=== PATIENT | male | born 1955 | race Caucasian/White ===

== ENCOUNTER 2017-11-17 13:49 | Inpatient (IN) | payer MEDICARE, MEDICAID ==
[~2017-11-17] VITALS: Ht 188 cm; Wt 140.4 kg
[2017-11-17] MEDS ORDERED: normal saline 1000ML IV soln IV ONE (14:15)
[2017-11-17 14:43] LABS: CLARITY,URINE CLOUDY (Clear); COLOR,URINE YELLOW (Yellow); GLUCOSE, URINE NEGATIVE (Neg); KETONES,URINE NEGATIVE (Neg); LEUKOCYTE ESTERASE ,URINE LARGE (Neg); NITRITES, URINE NEGATIVE (Neg); OCCULT BLOOD,URINE LARGE (Neg); PH,URINE 6.5 (4.8-8.0); PROTEIN,URINE 30 mg/dl (Neg); UROBILINOGEN,URINE 0.2 E.U/dL (0.2-1.0)
[2017-11-17 14:49] LABS: UA COLLECTION TYPE FOLEY CATH
[2017-11-17 14:50] LABS: AMORPHOUS URATES 1+; BACTERIA,URINE 2+ /HPF (Neg); MUCUS STRANDS FEW /LPF (Neg); RBC,URINE TNTC /HPF (0-2); SQUAMOUS EPITHELIAL CELL,UR FEW /LPF (FEW); WBC,URINE TNTC /HPF (0-4)
[2017-11-17 14:52] LABS: BASOPHILS % (AUTO) 0.3 % (0-1); EOSINOPHILS # (AUTO) 0.1 X10'3 (0-0.9); HEMATOCRIT 35.9 % (42.0-52.0); HEMOGLOBIN 11.5 g/dl (14.0-17.9); LYMPHOCYTES # (AUTO) 0.4 X10'3 (1.1-4.8); LYMPHOCYTES % (AUTO) 6.9 % (21-51); MEAN CORPUSCULAR HEMOGLOBIN 26.6 PG (27.0-31.0); MEAN CORPUSCULAR HGB CONC 32.1 % (33.0-36.5); MEAN CORPUSCULAR VOLUME 82.9 FL (78-98); MEAN PLATELET VOLUME 6.3 FL (7.4-10.4); MONOCYTES # (AUTO) 0.4 X10'3 (0-0.9); MONOCYTES % (AUTO) 7.3 % (2-12); NEUTROPHILS # (AUTO) 4.4 X10'3 (1.8-7.7); NEUTROPHILS % (AUTO) 84.5 % (42-75); PLATELET COUNT 111 X10'3 (140-440); RED BLOOD COUNT 4.33 X10'6 (4.70-6.10); WHITE BLOOD COUNT 5.2 X10'3 (4.5-11.0)
[2017-11-17 15:03] LABS: PROTHROMBIN TIME 10.2 SECONDS (9.0-12.0)
[2017-11-17] MEDS ORDERED: levoFLOXACIN-Levaquin 750MG/D5 150 ML IV ONE (15:10)
[2017-11-17 15:16] LABS: ALANINE AMINOTRANSFERASE 30 U/L (12-78); ALBUMIN 3.1 G/DL (3.4-5.0); ALBUMIN/GLOBULIN RATIO 0.6 (1.1-1.5); ALKALINE PHOSPHATASE 101 IU/L (46-116); ANION GAP 5 (8-16); ASPARTATE AMINO TRANSFERASE 16 U/L (10-37); BILIRUBIN,TOTAL 0.5 MG/DL (0.1-1.0); BLOOD UREA NITROGEN 79 MG/DL (7-18); CALCIUM 8.8 MG/DL (8.5-10.1); CHLORIDE 104 MMOL/L (99-107); CREATININE 3.44 MG/DL (0.60-1.10); GLUCOSE 173 MG/DL (70-104); POTASSIUM 4.5 MMOL/L (3.5-5.1); SODIUM 144 MMOL/L (135-145); TOTAL CARBON DIOXIDE 35.3 MMOL/L (24-32); TROPONIN I < 0.04 NG/ML (0.0-0.05); eGFR 18 ML/MIN
[2017-11-17] MEDS ORDERED: levoFLOXACIN-Levaquin 500mg/D5 100 ML IV ONE (15:40)
[2017-11-17] MEDS ORDERED: IPRA3AMP IH (15:42)
[2017-11-17] MEDS ORDERED: PRE5T PO (15:42)
[2017-11-17] MEDS ORDERED: AMIN30LI28 PO (15:42)
[2017-11-17] MEDS ORDERED: MORP60CA18 PO (15:42)
[2017-11-17] MEDS ORDERED: MAGN400O6 PO (15:42)
[2017-11-17] MEDS ORDERED: VANC1VIA21 IV (15:42)
[2017-11-17] MEDS ORDERED: MELO-102 PO (15:42)
[2017-11-17] MEDS ORDERED: HYDR-565 PO (15:42)
[2017-11-17] MEDS ORDERED: [UNRECOGNIZED DRUG - CODE] TOP (15:42)
[2017-11-17] MEDS ORDERED: VITC500T PO (15:42)
[2017-11-17] MEDS ORDERED: BISA10SU60 RC (15:42)
[2017-11-17] MEDS ORDERED: DIGO250T PO (15:42)
[2017-11-17] MEDS ORDERED: MAG355OR18 PO (15:42)
[2017-11-17] MEDS ORDERED: ZIN220C PO (15:42)
[2017-11-17] MEDS ORDERED: ONDA4TAB9 SL (15:42)
[2017-11-17] MEDS ORDERED: FLO0.4C PO (15:42)
[2017-11-17] MEDS ORDERED: MULT1TAB74 PO (15:42)
[2017-11-17] MEDS ORDERED: CARV-50 PO (15:42)
[2017-11-17] MEDS ORDERED: ALBU18HF2 INH (15:42)
[2017-11-17] MEDS ORDERED: SERIN IH (15:42)
[2017-11-17] MEDS ORDERED: ASPI81TA52 PO (15:42)
[2017-11-17] MEDS ORDERED: TEMA7.5C2 PO (15:42)
[2017-11-17] MEDS ORDERED: AMIO200T57 PO (15:42)
[2017-11-17] MEDS ORDERED: HYDROcodone/acetaminophen 5mg/325mg tablet PO PRN (16:40)
[2017-11-17] MEDS ORDERED: acetaminophen 325mg tablet PO PRN ×2 (16:40→16:45)
[2017-11-17] MEDS ORDERED: mag hydrox/Alum hydrox/simeth 30ml oral suspension PO PRN (16:45)
[2017-11-17] MEDS ORDERED: metoclopramide 5 mg/ml inj IV PRN (16:45)
[2017-11-17] MEDS ORDERED: magnesium hydroxide 30ml (MOM) UD suspension PO PRN (16:45)
[2017-11-17] MEDS ORDERED: morphine 4 MG/ML inj SYRINge IV PRN (16:45)
[2017-11-17] MEDS ORDERED: ondansetron/PF 4mg/2ml inj IV PRN (16:45)
[2017-11-17] MEDS ORDERED: HYDROmorphone inj. 0.5 MG/0.5 ML DISP.SYRIN IV PRN ×2 (16:45)
[2017-11-17] MEDS ORDERED: acetaminophen 650mg rectal suppository RC PRN (16:50)
[2017-11-17] MEDS ORDERED: normal saline 1000ml 1,000 ML IV SCH (16:50)
[2017-11-17] MEDS ORDERED: diphenhydrAMINE 50 mg/ml inj IV PRN (16:50)
[2017-11-17] MEDS ORDERED: bisacodyl 10mg suppository rectal RC PRN (16:50)
[2017-11-17] MEDS ORDERED: diphenhydrAMINE 25mg capsule PO PRN (16:50)
[2017-11-17] MEDS: normal saline 1000ml 1,000 ML IV SCH (19:17)
[2017-11-17] MEDS: ipratropium/albuterol 3ml nebule IH SCH (19:17)
[2017-11-17] MEDS ORDERED: piperacillin/tazo 4.5gm/100ml 100 ML IV SCH (20:00)
[2017-11-17] MEDS: docusate sod 100mg capsule PO SCH (21:36)
[2017-11-17] MEDS: carvedilol 6.25mg tablet PO SCH (21:37)
[2017-11-17] MEDS: lactobacillus rhamnosus 10,000 MMU CELLS/CAPSULE PO SCH (21:37)
[2017-11-17] MEDS: HYDROcodone/acetaminophen 10/325mg tab PO PRN (22:51)
[2017-11-18 00:15] VITALS: BP 111/73
[2017-11-18] MEDS ORDERED: piperacillin-tazo 2.25gm/50ml 50 ML IV ONE (00:38)
[2017-11-18] MEDS: piperacillin/tazobactam inj. 2.25 GM in normal saline 50ml IV IV SCH ×3 (00:50→16:52)
[2017-11-18] MEDS: heparin, porcine 5000 units/ml vial SQ SCH ×2 (00:56→08:04)
[2017-11-18] MEDS: normal saline 1000ml 1,000 ML IV SCH ×3 (02:00→13:26)
[2017-11-18] MEDS: HYDROcodone/acetaminophen 10/325mg tab PO PRN (04:05)
[2017-11-18 05:29] LABS: HEMOGLOBIN A1C 6.1 % (4.5-6.2)
[2017-11-18 07:34] VITALS: BP 125/49
[2017-11-18] MEDS ORDERED: vancomycin 1,000mg inj IV SCH (08:00)
[2017-11-18] MEDS ORDERED: amiodarone 200mg tablet PO SCH (08:00)
[2017-11-18] MEDS: docusate sod 100mg capsule PO SCH ×2 (08:00→22:23)
[2017-11-18] MEDS ORDERED: digoxin 250mcg (0.25mg) tablet PO SCH (08:00)
[2017-11-18] MEDS: ipratropium/albuterol 3ml nebule IH SCH ×4 (08:00→19:17)
[2017-11-18] MEDS: carvedilol 6.25mg tablet PO SCH ×2 (08:01→22:23)
[2017-11-18] MEDS: lactobacillus rhamnosus 10,000 MMU CELLS/CAPSULE PO SCH ×2 (08:03→22:23)
[2017-11-18] MEDS: tamsulosin 0.4mg capsule PO SCH (08:03)
[2017-11-18] MEDS: aspirin 81mg tablet.DR PO SCH (08:03)
[2017-11-18 11:30] VITALS: BP 138/60
[2017-11-18 14:02] LABS: BASOPHILS % (AUTO) 0.5 % (0-1); EOSINOPHILS % (AUTO) 0.5 % (0-6); HEMOGLOBIN 10.9 g/dl (14.0-17.9); LYMPHOCYTES # (AUTO) 0.5 X10'3 (1.1-4.8); LYMPHOCYTES % (AUTO) 9.7 % (21-51); MEAN CORPUSCULAR HEMOGLOBIN 26.4 PG (27.0-31.0); MEAN CORPUSCULAR VOLUME 82.5 FL (78-98); MEAN PLATELET VOLUME 6.2 FL (7.4-10.4); MONOCYTES # (AUTO) 0.5 X10'3 (0-0.9); MONOCYTES % (AUTO) 10.7 % (2-12); NEUTROPHILS # (AUTO) 3.8 X10'3 (1.8-7.7); NEUTROPHILS % (AUTO) 78.6 % (42-75); PLATELET COUNT 132 X10'3 (140-440); RED BLOOD COUNT 4.13 X10'6 (4.70-6.10); RED CELL DISTRIBUTION WIDTH 16.5 % (11.5-14.5); WHITE BLOOD COUNT 4.9 X10'3 (4.5-11.0)
[2017-11-18 14:15] LABS: ALANINE AMINOTRANSFERASE 25 U/L (12-78); ALBUMIN 2.7 G/DL (3.4-5.0); ALBUMIN/GLOBULIN RATIO 0.7 (1.1-1.5); ALKALINE PHOSPHATASE 82 IU/L (46-116); ANION GAP 7 (8-16); ASPARTATE AMINO TRANSFERASE 15 U/L (10-37); BILIRUBIN,TOTAL 0.5 MG/DL (0.1-1.0); BLOOD UREA NITROGEN 56 MG/DL (7-18); BUN/CREATININE RATIO 25.2 (5.4-32.0); CALCIUM 8.4 MG/DL (8.5-10.1); CHLORIDE 112 MMOL/L (99-107); CREATININE 2.22 MG/DL (0.60-1.10); GLUCOSE 122 MG/DL (70-104); POTASSIUM 3.8 MMOL/L (3.5-5.1); SODIUM 151 MMOL/L (135-145); TOTAL CARBON DIOXIDE 32.3 MMOL/L (24-32); TOTAL PROTEIN 6.8 G/DL (6.4-8.2); eGFR 30 ML/MIN
[2017-11-18] MEDS ORDERED: CRAN425C5 (15:54)
[2017-11-18 18:50] VITALS: BP 99/42
[2017-11-18 20:15] VITALS: BP 123/76
[2017-11-18] MEDS: nystatin 15 GM powder TP SCH (22:24)
[2017-11-18 23:00] VITALS: BP 125/65
[2017-11-19] MEDS: piperacillin/tazobactam inj. 2.25 GM in normal saline 50ml IV IV SCH ×4 (00:02→23:40)
[2017-11-19 05:59] LABS: ALANINE AMINOTRANSFERASE 25 U/L (12-78); ALBUMIN 2.8 G/DL (3.4-5.0); ALBUMIN/GLOBULIN RATIO 0.6 (1.1-1.5); ALKALINE PHOSPHATASE 82 IU/L (46-116); ANION GAP 6 (8-16); ASPARTATE AMINO TRANSFERASE 17 U/L (10-37); BILIRUBIN,TOTAL 0.5 MG/DL (0.1-1.0); BLOOD UREA NITROGEN 40 MG/DL (7-18); BUN/CREATININE RATIO 19.3 (5.4-32.0); CALCIUM 8.6 MG/DL (8.5-10.1); CHLORIDE 116 MMOL/L (99-107); CREATININE 2.07 MG/DL (0.60-1.10); GLUCOSE 124 MG/DL (70-104); POTASSIUM 3.7 MMOL/L (3.5-5.1); TOTAL CARBON DIOXIDE 33.9 MMOL/L (24-32); TOTAL PROTEIN 7.2 G/DL (6.4-8.2); eGFR 33 ML/MIN
[2017-11-19 06:27] LABS: SODIUM 156 MMOL/L (135-145)
[2017-11-19 07:00] VITALS: BP 163/74
[2017-11-19] MEDS: ipratropium/albuterol 3ml nebule IH SCH ×2 (07:45→21:00)
[2017-11-19] MEDS: aspirin 81mg tablet.DR PO SCH (08:15)
[2017-11-19] MEDS: docusate sod 100mg capsule PO SCH (08:15)
[2017-11-19] MEDS: carvedilol 6.25mg tablet PO SCH ×2 (08:15→19:08)
[2017-11-19] MEDS: tamsulosin 0.4mg capsule PO SCH (08:15)
[2017-11-19] MEDS: lactobacillus rhamnosus 10,000 MMU CELLS/CAPSULE PO SCH ×2 (08:15→19:09)
[2017-11-19] MEDS: nystatin 15 GM powder TP SCH ×3 (09:57→21:00)
[2017-11-19] MEDS: HYDROcodone/acetaminophen 10/325mg tab PO PRN ×4 (10:00→23:40)
[2017-11-19 11:00] VITALS: BP 144/78
[2017-11-19] MEDS ORDERED: dextrose 5%-water 1,000 ML IV SCH (11:50)
[2017-11-19] MEDS: dextrose 5%-water 1,000 ML IV SCH (13:07)
[2017-11-19 20:00] VITALS: BP 141/73
[2017-11-19] MEDS: morphine 4 MG/ML inj SYRINge IV PRN (21:52)
[2017-11-20] VITALS: BP 135/71
[2017-11-20] MEDS: albuterol 2.5 MG/3 ML nebule NEB PRN ×2 (00:19→23:51)
[2017-11-20] MEDS: temazepam 15mg capsule PO PRN (01:54)
[2017-11-20] MEDS: dextrose 5%-water 1,000 ML IV SCH ×3 (01:54→17:19)
[2017-11-20] MEDS: morphine 4 MG/ML inj SYRINge IV PRN ×3 (03:28→12:27)
[2017-11-20] MEDS: HYDROcodone/acetaminophen 10/325mg tab PO PRN ×4 (05:55→20:39)
[2017-11-20 07:30] VITALS: BP 151/70
[2017-11-20] MEDS: ipratropium/albuterol 3ml nebule IH SCH ×3 (08:08→22:42)
[2017-11-20] MEDS: lactobacillus rhamnosus 10,000 MMU CELLS/CAPSULE PO SCH ×2 (08:12→20:37)
[2017-11-20] MEDS: carvedilol 6.25mg tablet PO SCH ×2 (08:13→20:40)
[2017-11-20] MEDS: aspirin 81mg tablet.DR PO SCH (08:22)
[2017-11-20] MEDS: tamsulosin 0.4mg capsule PO SCH (08:29)
[2017-11-20] MEDS: nystatin 15 GM powder TP SCH ×2 (08:31→16:35)
[2017-11-20] MEDS: piperacillin/tazobactam inj. 2.25 GM in normal saline 50ml IV IV SCH ×2 (09:55→16:20)
[2017-11-20 12:00] VITALS: BP 136/64
[2017-11-20 19:30] VITALS: BP 160/57
[2017-11-20] MEDS: ampicillin inj 1 GM in normal saline 100ml IV soln 100 ML IV SCH (20:40)
[2017-11-21] VITALS: BP 154/60
[2017-11-21] MEDS: temazepam 15mg capsule PO PRN ×3 (00:58→22:54)
[2017-11-21] MEDS: HYDROcodone/acetaminophen 10/325mg tab PO PRN ×4 (00:59→20:24)
[2017-11-21] MEDS: nystatin 15 GM powder TP SCH ×4 (01:00→22:55)
[2017-11-21] MEDS: ampicillin inj 1 GM in normal saline 100ml IV soln 100 ML IV SCH ×4 (01:42→20:24)
[2017-11-21] MEDS: dextrose 5%-water 1,000 ML IV SCH ×4 (01:42→18:59)
[2017-11-21] MEDS: morphine 4 MG/ML inj SYRINge IV PRN ×4 (02:56→18:59)
[2017-11-21 06:25] LABS: ALBUMIN 2.5 G/DL (3.4-5.0); ANION GAP 4 (8-16); BLOOD UREA NITROGEN 15 MG/DL (7-18); CALCIUM 8.2 MG/DL (8.5-10.1); CHLORIDE 108 MMOL/L (99-107); CREATININE 1.66 MG/DL (0.60-1.10); GLUCOSE 140 MG/DL (70-104); POTASSIUM 3.4 MMOL/L (3.5-5.1); SODIUM 145 MMOL/L (135-145); TOTAL CARBON DIOXIDE 32.8 MMOL/L (24-32); eGFR 42 ML/MIN
[2017-11-21] MEDS ORDERED: VANCOMYCIN LEVEL IV ONE (06:30)
[2017-11-21] MEDS: ipratropium/albuterol 3ml nebule IH SCH ×4 (07:04→21:19)
[2017-11-21] MEDS: carvedilol 6.25mg tablet PO SCH ×2 (08:00→20:25)
[2017-11-21] MEDS: tamsulosin 0.4mg capsule PO SCH (09:01)
[2017-11-21] MEDS: aspirin 81mg tablet.DR PO SCH (09:01)
[2017-11-21] MEDS: lactobacillus rhamnosus 10,000 MMU CELLS/CAPSULE PO SCH ×2 (09:01→20:25)
[2017-11-21 09:09] VITALS: BP 107/77
[2017-11-21 13:07] VITALS: BP 140/82
[2017-11-21 18:00] VITALS: BP 157/71
[2017-11-21] MEDS ORDERED: VANCOMYCIN LEVEL IV NR (18:30)
[2017-11-22] VITALS: BP 133/75
[2017-11-22] MEDS: ampicillin inj 1 GM in normal saline 100ml IV soln 100 ML IV SCH ×2 (01:51→06:48)
[2017-11-22] MEDS: morphine 4 MG/ML inj SYRINge IV PRN ×2 (01:52→06:50)
[2017-11-22] MEDS: HYDROcodone/acetaminophen 10/325mg tab PO PRN (03:20)
[2017-11-22] MEDS: ipratropium/albuterol 3ml nebule IH SCH (06:45)
[2017-11-22] MEDS: lactobacillus rhamnosus 10,000 MMU CELLS/CAPSULE PO SCH (06:51)
[2017-11-22] MEDS: tamsulosin 0.4mg capsule PO SCH (06:51)
[2017-11-22] MEDS: nystatin 15 GM powder TP SCH (06:51)
[2017-11-22] MEDS: carvedilol 6.25mg tablet PO SCH (06:51)
[2017-11-22] MEDS: aspirin 81mg tablet.DR PO SCH (06:51)
[2017-11-22 06:53] VITALS: BP 163/82
== END 2017-11-22 09:27 | DRG 871 ==
LOC: ER 13:50 → ED HOLD 18:07 → MED 3N 23:47 → UNDODISIN 11-19 11:00 → MED 3N 11-21 10:35
PROVIDERS: ADMIT Family Medicine; ATTEND Family Medicine
DX: A41.9 Sepsis, unspecified organism (principal); G93.41 Metabolic encephalopathy; I50.23 Acute on chronic systolic (congestive) heart failure; L89.153 Pressure ulcer of sacral region, stage 3; N17.9 Acute kidney failure, unspecified; E87.0 Hyperosmolality and hypernatremia; L03.317 Cellulitis of buttock; N39.0 Urinary tract infection, site not specified; L02.31 Cutaneous abscess of buttock; E66.9 Obesity, unspecified; R31.0 Gross hematuria; D64.9 Anemia, unspecified; E04.1 Nontoxic single thyroid nodule; E87.6 Hypokalemia; N18.9 Chronic kidney disease, unspecified; B96.4 Proteus (mirabilis) (morganii) as the cause of diseases classified elsewhere; B95.2 Enterococcus as the cause of diseases classified elsewhere; B95.62 Methicillin resistant Staphylococcus aureus infection as the cause of diseases classified elsewhere; Z51.5 Encounter for palliative care; Z79.899 Other long term (current) drug therapy; Z79.01 Long term (current) use of anticoagulants; Z87.442 Personal history of urinary calculi; Z68.39 Body mass index [BMI] 39.0-39.9, adult
CPT/HCPCS: 36415; 70450; 71045; 71250; 74176; 76856; 80048; 80053; 80162; 81001; 82948; 83036; 83605; 83880; 84439; 84443; 84484; 85025; 85610; 87040; 87070; 87077; 87088; 87186; 93005; 93306; 94640; 94760; 96365; 96366; 97110; 97162; 97530; 99285; A4357; A6196; A6212; A6213; A6446; A6449; J0290; J1644; J1956; J2270; J2543; J3370; J7030; J7070; J7120